=== PATIENT | male | born 1995 | race Asian ===

== ENCOUNTER 2024-12-10 02:25 | Inpatient (IN) | payer MEDICAID, OTHER ==
[~2024-12-10] VITALS: Ht 165.1 cm; Wt 112.5 kg
[2024-12-10] MEDS ORDERED: MORPHINE SULFATE INJ 4 MG/ML DISP.SYRIN ONE (02:47)
[2024-12-10] MEDS ORDERED: ONDANSETRON HCL/PF 4 MG/2 ML VIAL ONE ×2 (02:47→03:57)
[2024-12-10] MEDS: IV NS 0.9% 1,000 ML BAG IV ONE ×2 (02:59→10:21)
[2024-12-10] MEDS: ONDANSETRON HCL/PF 4 MG/2 ML VIAL IV ONE ×2 (03:00→04:09)
[2024-12-10] MEDS: MORPHINE SULFATE INJ 2 MG/ML DISP.SYRIN IV ONE (03:00)
[2024-12-10 03:04] LABS: PLATELET COUNT (AUTO) 260 K/uL (150-450); RED BLOOD CELL COUNT(AUTO) 5.08 MIL/uL (4.5-6.0); RED CELL DISTRIBUTION WIDTH 12.8 % (11.5-15.0); WHITE BLOOD COUNT (AUTO) 9.4 K/uL (4.3-11.0)
[2024-12-10 03:48] LABS: CALCIUM, SERUM 8.9 mg/dL (8.5-10.1); CREATININE 0.7 mg/dL (0.6-1.3); SODIUM SERUM 140 mmol/L (136-145); UREA NITROGEN, BLOOD 7 mg/dL (7-18)
[2024-12-10 03:53] LABS: ASPARTATE AMINOTRANSFERASE 24 U/L (15-37); TOTAL PROTEIN, SERUM 7.7 g/dL (6.4-8.2)
[2024-12-10] MEDS ORDERED: PANTOPRAZOLE 40 MG VIAL ONE (03:57)
[2024-12-10 04:06] LABS: LACTIC ACID 2.2 mmol/L (0.4-2.0)
[2024-12-10] MEDS: PANTOPRAZOLE 40 MG VIAL IV ONE (04:09)
[2024-12-10] MEDS ORDERED: LIDOCAINE VISCOUS 2% UD 15 ML UDC ONE (04:40)
[2024-12-10] MEDS ORDERED: MAG HYDROX/AL HYDROX/SIMETH 30 ML UDC ONE (04:40)
[2024-12-10] MEDS: LIDOCAINE VISCOUS 2% UD 15 ML UDC MM ONE (04:43)
[2024-12-10] MEDS: MAG HYDROX/AL HYDROX/SIMETH 30 ML UDC PO ONE (04:43)
[2024-12-10] MEDS ORDERED: IOHEXOL-300 100 ML VIAL IV ONE (05:17)
[2024-12-10] MEDS ORDERED: CT SWABBABLE VALVE TRANS SET 1 EA INFUS.SET MC ONE (05:17)
[2024-12-10] MEDS ORDERED: IV NS 0.9% 250 ML IV ONE (05:17)
[2024-12-10] MEDS ORDERED: ONDA4TAB5 PO (05:18)
[2024-12-10] MEDS ORDERED: PANT40TA2 PO (05:18)
[2024-12-10] MEDS ORDERED: DICY10CA37 PO (05:18)
[2024-12-10] MEDS ORDERED: HALOPERIDOL LACTATE INJ 5 MG/ML VIAL ONE (06:04)
[2024-12-10] MEDS: HALOPERIDOL LACTATE INJ 5 MG/ML VIAL IV ONE (06:18)
[2024-12-10 06:39] LABS: LACTIC ACID REFLEX 2.4 mmol/L (0.4-1.9)
[2024-12-10] MEDS ORDERED: Magnesium 1GM/D5W 100ML PREMIX 100 ML IV ONE (07:40)
[2024-12-10] MEDS: Magnesium 1 GM/2 ML VIAL IV ONE (07:49)
[2024-12-10] MEDS ORDERED: ESCI20TA PO (08:47)
[2024-12-10] MEDS ORDERED: OMEP20CA15 PO (08:47)
[2024-12-10] MEDS ORDERED: ZEPBOUND SQ (08:47)
[2024-12-10] MEDS ORDERED: AMLO-213 PO (08:47)
[2024-12-10] MEDS: LORAZEPAM INJ 2 MG/ML VIAL IV ONE (08:50)
[2024-12-10] MEDS ORDERED: ONDANSETRON HCL/PF 4 MG/2 ML VIAL IV PRN (11:30)
[2024-12-10] MEDS ORDERED: ACETAMINOPHEN 325 MG TABLET PO PRN (11:30)
[2024-12-10] MEDS ORDERED: DIATR MEGLU/DIATRIZOATE SODIUM 30 ML BOTTLE (GASTROGRAPHIN) ONE (11:33)
[2024-12-10] MEDS ORDERED: IOHEXOL-350 100 ML VIAL IV ONE (11:33)
[2024-12-10] MEDS: PIPERACILLIN /TAZOBACTAM 3.375 G in IV D5W 50 ML IV SCH (12:00)
[2024-12-10] MEDS: METOPROLOL TARTRATE 25 MG TABLET PO SCH (12:00)
[2024-12-10] MEDS: DICYCLOMINE HCL 10 MG CAPSULE PO SCH (13:00)
[2024-12-10] MEDS: K PHOS NEUTRAL 250 MG TABLET PO SCH (17:44)
[2024-12-10] MEDS: IV 1/2NS 1000 ML 1,000 ML IV PRN (17:45)
[2024-12-10 20:00] VITALS: BP 113/80; TEMP 98.1; O2SAT 97
[2024-12-11] VITALS: BP 110/67; TEMP 98.4; O2SAT 98
[2024-12-11 04:00] VITALS: BP 121/71; TEMP 98.1; O2SAT 98
[2024-12-11 07:49] LABS: PLATELET COUNT (AUTO) 234 K/uL (150-450); RED BLOOD CELL COUNT(AUTO) 4.68 MIL/uL (4.5-6.0); RED CELL DISTRIBUTION WIDTH 13.1 % (11.5-15.0); WHITE BLOOD COUNT (AUTO) 10.2 K/uL (4.3-11.0)
[2024-12-11 08:00] VITALS: BP 121/80; TEMP 98.6; O2SAT 98
[2024-12-11 08:01] LABS: CALCIUM, SERUM 8.6 mg/dL (8.5-10.1); CREATININE 0.9 mg/dL (0.6-1.3); SODIUM SERUM 138.0 mmol/L (136-145); UREA NITROGEN, BLOOD 6.0 mg/dL (7-18)
[2024-12-11 08:05] LABS: PHOSPHORUS 3.8 mg/dL (2.5-4.9)
[2024-12-11 08:09] LABS: LACTIC ACID 0.9 mmol/L (0.4-2.0)
[2024-12-11] MEDS: ESCITALOPRAM OXALATE (10 MG) 10 MG TABLET PO SCH (08:13)
[2024-12-11] MEDS: PANTOPRAZOLE 40 MG TABLET.DR PO SCH (08:14)
[2024-12-11] MEDS ORDERED: METO25TA4 PO (10:55)
[2024-12-11] MEDS: METOPROLOL SUCCINATE 25 MG TAB.SR.24H PO SCH (11:00)
[2024-12-11 12:00] VITALS: BP 134/86; TEMP 98.8; O2SAT 98
[2024-12-11] MEDS: PIPERACILLIN /TAZOBACTAM 3.375 G in IV D5W 100 ML IV SCH (14:02)
[2024-12-11 16:00] VITALS: BP 134/86; TEMP 98.2; O2SAT 98
[2024-12-11] MEDS ORDERED: PIPERACILLIN /TAZOBACTAM 3.375 G in IV D5W 50 ML IV SCH (18:00)
[2024-12-11 20:00] VITALS: BP 126/73; TEMP 98.1; O2SAT 98
[2024-12-12] VITALS: BP 118/79; TEMP 98; O2SAT 99
[2024-12-12 04:00] VITALS: BP 116/83; TEMP 98; O2SAT 100
[2024-12-12 06:48] LABS: INR 1.03 (0.91-1.10)
[2024-12-12 07:02] LABS: ASPARTATE AMINOTRANSFERASE 20.0 U/L (15-37); CALCIUM, SERUM 8.6 mg/dL (8.5-10.1); CREATININE 0.6 mg/dL (0.6-1.3); SODIUM SERUM 137.0 mmol/L (136-145); TOTAL PROTEIN, SERUM 7.1 g/dL (6.4-8.2); UREA NITROGEN, BLOOD 8.0 mg/dL (7-18)
[2024-12-12] MEDS ORDERED: INDOCYANINE GREEN 25 MG/VIAL VIAL IJ ONE (07:17)
[2024-12-12] MEDS ORDERED: BUPIVACAINE 0.5 % PF 150 MG/30 ML VIAL ONE (07:17)
[2024-12-12] MEDS ORDERED: LIDOCAINE 1%-EPI 1:100,000 20 ML VIAL ONE (07:17)
[2024-12-12 08:00] VITALS: BP 127/89; TEMP 98.6; O2SAT 97
[2024-12-12] MEDS ORDERED: POTASSIUM CHLORIDE 10 MEQ/50 ML PREMIXED IVPB FOR PERIPHERAL LINE IV ONE (09:00)
[2024-12-12] MEDS ORDERED: FENTANYL PF 100MCG/2ML AMPUL ONE (09:06)
[2024-12-12] MEDS ORDERED: MIDAZOLAM HCL 2 MG/2ML VIAL ONE (09:06)
[2024-12-12] MEDS ORDERED: ROCURONIUM BROMIDE 50 MG/5 ML ONE (09:06)
[2024-12-12] MEDS ORDERED: FAMOTIDINE/PF INJ 20 MG/2 ML VIAL IV ONE (09:06)
[2024-12-12] MEDS ORDERED: ACETAMINOPHEN 325 MG TABLET PO PRN (10:00)
[2024-12-12 12:00] VITALS: BP 147/86; TEMP 99; O2SAT 95
[2024-12-12] MEDS: MORPHINE SULFATE INJ 2 MG/ML DISP.SYRIN IV PRN (12:09)
[2024-12-12] MEDS: POTASSIUM CHLORIDE 20 MEQ TAB.PRT.SR PO ONE (12:10)
[2024-12-12] MEDS: Potassium Chloride 10 MEQ in IV D5/0.45 NACL 1,000 ML IV SCH (12:40)
[2024-12-12] MEDS: HYDROCODONE/APAP 5/325MG TABLET PO PRN (13:01)
[2024-12-12] MEDS: HYDROMORPHONE 1 MG/1 ML DISP.SYRIN IV PRN (14:28)
[2024-12-12 16:00] VITALS: BP 128/83; TEMP 98.1; O2SAT 96
[2024-12-12 20:00] VITALS: BP_SYST 123; BP_SYST 137; BP_DIAS 83; BP_DIAS 91; TEMP 97.9; TEMP 98.4; O2SAT 95; O2SAT 96
[2024-12-13] VITALS: BP 137/91; TEMP 98.4; O2SAT 95
[2024-12-13 03:46] VITALS: BP 132/89; TEMP 98.1; O2SAT 97
[2024-12-13 04:37] VITALS: BP 132/89; TEMP 98.1; O2SAT 97
[2024-12-13 06:38] LABS: PLATELET COUNT (AUTO) 223 K/uL (150-450); RED BLOOD CELL COUNT(AUTO) 4.24 MIL/uL (4.5-6.0); RED CELL DISTRIBUTION WIDTH 12.7 % (11.5-15.0); WHITE BLOOD COUNT (AUTO) 11.6 K/uL (4.3-11.0)
[2024-12-13 06:44] LABS: INR 1.06 (0.91-1.10)
[2024-12-13 06:45] LABS: ASPARTATE AMINOTRANSFERASE 40.0 U/L (15-37); CALCIUM, SERUM 8.5 mg/dL (8.5-10.1); CREATININE 0.7 mg/dL (0.6-1.3); PHOSPHORUS 4.3 mg/dL (2.5-4.9); SODIUM SERUM 137.0 mmol/L (136-145); TOTAL PROTEIN, SERUM 6.7 g/dL (6.4-8.2); UREA NITROGEN, BLOOD 7.0 mg/dL (7-18)
[2024-12-13 08:00] VITALS: BP 128/79; TEMP 98.2; O2SAT 95
[2024-12-13] MEDS ORDERED: IOHEXOL 0 ML IV ONE (09:25)
[2024-12-13] MEDS ORDERED: INDOMETHACIN 100 MG SUPP.RECT ONE (09:26)
[2024-12-13] MEDS: ZOSYN IVPB 3.375 G in IV D5W 50ml IV SCH (12:00)
[2024-12-13] MEDS ORDERED: FENTANYL PF 100MCG/2ML AMPUL ONE (13:39)
[2024-12-13] MEDS ORDERED: ROCURONIUM BROMIDE 50 MG/5 ML ONE ×2 (13:39→13:40)
[2024-12-13] MEDS ORDERED: SUCCINYLCHOLINE CHLORIDE 20 MG/ML VIAL ONE (13:40)
[2024-12-13 16:00] VITALS: BP 133/90; TEMP 98.4; O2SAT 94
[2024-12-13] MEDS: Potassium Chloride 10 MEQ in IV D5/0.45 NACL 1,000 ML IV SCH (17:14)
[2024-12-13 20:00] VITALS: BP 143/92; TEMP 98.4; O2SAT 95
[2024-12-14 04:00] VITALS: BP 142/100; TEMP 97.3; O2SAT 95
[2024-12-14] MEDS: ONDANSETRON HCL/PF 4 MG/2 ML VIAL IVP PRN (08:22)
[2024-12-14] MEDS ORDERED: METOCLOPRAMIDE HCL 10 MG/2 ML VIAL IV SCH (09:30)
[2024-12-14] MEDS: METOCLOPRAMIDE HCL 10 MG/2 ML VIAL IV SCH (09:55)
[2024-12-14 10:00] VITALS: BP 156/101; TEMP 98.3; O2SAT 94
[2024-12-14 10:22] LABS: RED BLOOD CELL COUNT(AUTO) 4.88 MIL/uL (4.5-6.0); WHITE BLOOD COUNT (AUTO) 16.3 K/uL (4.3-11.0)
[2024-12-14 10:23] LABS: PLATELET COUNT (AUTO) 292 K/uL (150-450); RED CELL DISTRIBUTION WIDTH 13.0 % (11.5-15.0)
[2024-12-14 11:17] LABS: SODIUM SERUM 137.0 mmol/L (136-145)
[2024-12-14 11:18] LABS: ASPARTATE AMINOTRANSFERASE 43.0 U/L (15-37); CALCIUM, SERUM 8.2 mg/dL (8.5-10.1); CREATININE 0.6 mg/dL (0.6-1.3); PHOSPHORUS 3.1 mg/dL (2.5-4.9); UREA NITROGEN, BLOOD 9.0 mg/dL (7-18)
[2024-12-14 11:19] LABS: TOTAL PROTEIN, SERUM 6.6 g/dL (6.4-8.2)
[2024-12-14 12:00] VITALS: BP 137/95; TEMP 98.3; O2SAT 95
[2024-12-14] MEDS: PANTOPRAZOLE 40 MG VIAL IV SCH (13:20)
[2024-12-14 16:00] VITALS: BP 142/91; TEMP 98.2; O2SAT 96
[2024-12-14] MEDS ORDERED: ONDANSETRON HCL/PF 4 MG/2 ML VIAL IVP PRN (20:30)
[2024-12-14 22:00] VITALS: BP 124/82; TEMP 98.1; O2SAT 95
[2024-12-15 04:00] VITALS: BP 145/90; TEMP 98.4; O2SAT 95
[2024-12-15 06:40] LABS: PLATELET COUNT (AUTO) 300 K/uL (150-450); RED BLOOD CELL COUNT(AUTO) 4.43 MIL/uL (4.5-6.0); RED CELL DISTRIBUTION WIDTH 13.1 % (11.5-15.0); WHITE BLOOD COUNT (AUTO) 20.9 K/uL (4.3-11.0)
[2024-12-15 07:00] LABS: ASPARTATE AMINOTRANSFERASE 39 U/L (15-37); CALCIUM, SERUM 8.2 mg/dL (8.5-10.1); CREATININE 0.6 mg/dL (0.6-1.3); SODIUM SERUM 136 mmol/L (136-145); TOTAL PROTEIN, SERUM 6.4 g/dL (6.4-8.2); UREA NITROGEN, BLOOD 5 mg/dL (7-18)
[2024-12-15] MEDS: POTASSIUM CHLORIDE 20 MEQ TAB.PRT.SR PO ONE (09:52)
[2024-12-15 12:00] VITALS: BP 131/91; TEMP 98.1; O2SAT 96
[2024-12-15 20:00] VITALS: BP 131/81; TEMP 98.4; O2SAT 95
[2024-12-16 04:00] VITALS: BP 135/81; TEMP 98.3; O2SAT 95
[2024-12-16 06:48] LABS: PLATELET COUNT (AUTO) 225 K/uL (150-450); RED BLOOD CELL COUNT(AUTO) 3.85 MIL/uL (4.5-6.0); RED CELL DISTRIBUTION WIDTH 12.7 % (11.5-15.0); WHITE BLOOD COUNT (AUTO) 16.3 K/uL (4.3-11.0)
[2024-12-16 07:26] LABS: ASPARTATE AMINOTRANSFERASE 31.0 U/L (15-37); CALCIUM, SERUM 8.2 mg/dL (8.5-10.1); CREATININE 0.6 mg/dL (0.6-1.3); PHOSPHORUS 2.9 mg/dL (2.5-4.9); SODIUM SERUM 134.0 mmol/L (136-145); TOTAL PROTEIN, SERUM 6.0 g/dL (6.4-8.2); UREA NITROGEN, BLOOD 4.0 mg/dL (7-18)
[2024-12-16] MEDS: ENOXAPARIN SODIUM 40 MG/0.4 ML DISP.SYRIN SQ SCH (08:37)
[2024-12-16] MEDS: POTASSIUM CHLORIDE 20 MEQ POWDER PACKET PO ONE (11:23)
[2024-12-16 12:00] VITALS: BP 131/82; TEMP 98.4; O2SAT 95
[2024-12-16] MEDS ORDERED: HYDROCODONE/APAP 5/325MG TABLET PO PRN (13:30)
[2024-12-16] MEDS ORDERED: ACETAMINOPHEN 325 MG TABLET PO PRN (13:30)
[2024-12-16] MEDS ORDERED: HYDROMORPHONE 1 MG/1 ML DISP.SYRIN IV PRN (13:30)
[2024-12-16] MEDS: GABAPENTIN 300 MG CAPSULE PO SCH (15:03)
[2024-12-16 16:00] VITALS: BP 128/88; TEMP 98.8; O2SAT 98
[2024-12-16] MEDS: TRAMADOL HCL 50 MG TABLET PO PRN (17:19)
[2024-12-16 20:00] VITALS: BP 132/86; TEMP 98.2; O2SAT 94; O2SAT 98
[2024-12-17] MEDS: TEMAZEPAM 7.5 MG CAPSULE PO PRN (01:21)
[2024-12-17 04:00] VITALS: BP 131/92; TEMP 98.6; O2SAT 94
[2024-12-17 07:59] LABS: PLATELET COUNT (AUTO) 258 K/uL (150-450); RED BLOOD CELL COUNT(AUTO) 3.96 MIL/uL (4.5-6.0); RED CELL DISTRIBUTION WIDTH 12.9 % (11.5-15.0); WHITE BLOOD COUNT (AUTO) 14.9 K/uL (4.3-11.0)
[2024-12-17 08:00] VITALS: BP 141/79; TEMP 98.2; O2SAT 97
[2024-12-17 08:23] LABS: ASPARTATE AMINOTRANSFERASE 28.0 U/L (15-37); CALCIUM, SERUM 8.4 mg/dL (8.5-10.1); CREATININE 0.6 mg/dL (0.6-1.3); SODIUM SERUM 135.0 mmol/L (136-145); TOTAL PROTEIN, SERUM 6.3 g/dL (6.4-8.2); UREA NITROGEN, BLOOD 5.0 mg/dL (7-18)
[2024-12-17] MEDS: AMOX/CLAVULANATE 875 MG TABLET PO SCH (08:32)
[2024-12-17] MEDS: PANTOPRAZOLE 40 MG/PACK PACK PO SCH (08:32)
[2024-12-17] MEDS: ACETAMINOPHEN 325 MG TABLET PO PRN (10:21)
[2024-12-17] MEDS: POTASSIUM CHLORIDE 20 MEQ POWDER PACKET PO ONE (11:30)
[2024-12-17] MEDS: POTASSIUM CHLORIDE 20 MEQ TAB.PRT.SR PO ONE (12:31)
[2024-12-17] MEDS: ENSURE CLEAR 237 ML LIQUID (MIX BERRY) PO SCH (13:00)
[2024-12-17] MEDS: PROSOURCE / PROSTAT (PYXIS) 30 ML UDC PO SCH (13:00)
[2024-12-17 16:00] VITALS: BP 133/83; TEMP 98.2; O2SAT 94
[2024-12-17 20:00] VITALS: BP 118/78; TEMP 98.4; O2SAT 95
[2024-12-18 04:00] VITALS: BP 142/82; TEMP 98.8; O2SAT 95
[2024-12-18 07:28] LABS: PLATELET COUNT (AUTO) 327 K/uL (150-450); RED BLOOD CELL COUNT(AUTO) 4.24 MIL/uL (4.5-6.0); RED CELL DISTRIBUTION WIDTH 12.8 % (11.5-15.0); WHITE BLOOD COUNT (AUTO) 15.9 K/uL (4.3-11.0)
[2024-12-18 07:57] LABS: ASPARTATE AMINOTRANSFERASE 25.0 U/L (15-37); CALCIUM, SERUM 8.5 mg/dL (8.5-10.1); CREATININE 0.5 mg/dL (0.6-1.3); PHOSPHORUS 3.8 mg/dL (2.5-4.9); SODIUM SERUM 134.0 mmol/L (136-145); TOTAL PROTEIN, SERUM 6.7 g/dL (6.4-8.2); UREA NITROGEN, BLOOD 5.0 mg/dL (7-18)
[2024-12-18 08:00] VITALS: BP 133/91; TEMP 98.4; O2SAT 93
[2024-12-18] MEDS ORDERED: AMOX-430 PO (10:26)
[2024-12-18 10:58] VITALS: BP 133/91
[2024-12-19] MEDS ORDERED: PANTOPRAZOLE 40 MG TABLET.DR PO SCH (09:00)
== END 2024-12-18 16:15 | disposition home or self-care (01) | DRG 263 ==
LOC: ER 02:40 → TELE1 10:53 → MEDSG1 12-13 10:12
PROVIDERS: ADMIT Internal Medicine; ATTEND Internal Medicine
PROC: 0FC94ZZ Extirpation of Matter from Common Bile Duct, Percutaneous Endoscopic Approach (ICD-10-PCS; 2024-12-12)
PROC: 0FB04ZX Excision of Liver, Percutaneous Endoscopic Approach, Diagnostic (ICD-10-PCS; 2024-12-12)
PROC: BF13YZZ Fluoroscopy of Gallbladder and Bile Ducts using Other Contrast (ICD-10-PCS; 2024-12-12)
PROC: 0FT44ZZ Resection of Gallbladder, Percutaneous Endoscopic Approach (ICD-10-PCS; principal; 2024-12-12 09:00)
PROC: 0F798DZ Dilation of Common Bile Duct with Intraluminal Device, Via Natural or Artificial Opening Endoscopic (ICD-10-PCS; 2024-12-13)
DX: K80.42 Calculus of bile duct with acute cholecystitis without obstruction (principal); K85.80 Other acute pancreatitis without necrosis or infection; E87.20 Acidosis, unspecified; K82.A1 Gangrene of gallbladder in cholecystitis; E11.9 Type 2 diabetes mellitus without complications; E66.01 Morbid (severe) obesity due to excess calories; D64.9 Anemia, unspecified; E80.6 Other disorders of bilirubin metabolism; K91.89 Other postprocedural complications and disorders of digestive system; E86.0 Dehydration; K76.0 Fatty (change of) liver, not elsewhere classified; I49.3 Ventricular premature depolarization; I10 Essential (primary) hypertension; J45.909 Unspecified asthma, uncomplicated; F32.A Depression, unspecified; Z68.41 Body mass index [BMI] 40.0-44.9, adult; Z79.899 Other long term (current) drug therapy; K43.9 Ventral hernia without obstruction or gangrene; L03.818 Cellulitis of other sites; K85.90 Acute pancreatitis without necrosis or infection, unspecified; Y83.8 Other surgical procedures as the cause of abnormal reaction of the patient, or of later complication, without mention of misadventure at the time of the procedure; Y92.230 Patient room in hospital as the place of occurrence of the external cause
CPT/HCPCS: 36415; 71045-TC; 74018; 74181-TC; 76705-TC; 78226; 80048-TC; 80053-TC; 82248-TC; 83605-TC; 83690-TC; 83735-TC; 84100-TC; 84439-TC; 84443-TC; 84481; 84484-TC; 85025-TC; 85610-TC; 85730-TC; 86140-TC; 86850-TC; 88304-TC; 88307-TC; 88313-TC; 97112-TC; 97116-TC; 97530-TC; A4223; A6209; A9521; C2625; G0378; J0330; J0690; J1100; J1171; J1308; J1630; J1650; J2060; J2250; J2270; J2405; J2470; J2543; J2704; J2765; J3010; J3475; J3480; J3490; J7030; J7050; J7060; Q9963; Q9967; Q9968